=== PATIENT | female | born 1980 | race African-American/Black ===

== ENCOUNTER 2018-08-02 18:32 | Emergency (ER) | payer SELFPAY ==
[2018-08-02] MEDS ORDERED: Metoclopramide HCl 10 MG/2 ML VIAL ONE (19:52)
[2018-08-02] MEDS ORDERED: Ketorolac Tromethamine 30 MG/ML VIAL ONE (19:52)
[2018-08-02] MEDS ORDERED: Dexamethasone 4 mg/ml Vial ONE (19:52)
== END 2018-08-02 20:41 | disposition home or self-care (01) ==
LOC: ERS 18:32
DX: G43.909 Migraine, unspecified, not intractable, without status migrainosus (principal)
CPT/HCPCS: 96361; 96374; 96375; J1100; J1885; J2765

== ENCOUNTER 2018-11-12 11:01 | Emergency (ER) | payer SELFPAY ==
[2018-11-12 11:58] LABS: Bilirubin Negative (Negative); Blood, Urine Trace (Negative); Clarity CLEAR (Clear); Glucose, Urine (Dipstick) Negative (Negative); Leukocyte Negative (Negative); Nitrite Negative (Negative); Protein, Urine (Dipstick) Negative (Neg-Trace); Specific Gravity, Urine 1.022 (1.002-1.036); Urobilinogen 0.2 mg/dL (0.2-1.0); pH, Urine 5.5 (5.0-9.0)
[2018-11-12 12:00] LABS: Bacteria/HPF None Seen HPF (None Seen); Hyaline Casts/LPF 0-3 HYALINE CAST LPF (0-3 Hyaline); Pathc Cast-AUWi Flag 0.58 (0-2.49); RBC/HPF 0-3 HPF (0-3); Squamous Epithelial 0-3 HPF (0-3); WBC/HPF None Seen HPF (0-3)
[2018-11-12 12:02] LABS: Pregnancy Test - Urine (BHCG) Negative (Negative); Pregu Control Background? CLEAR/WHITE (CLR/WHITE); Pregu Control Bar Appear? YES (CONTROL BAR); Specific Gravity 1.022 (1.002-1.036)
[2018-11-12 12:11] LABS: #Basophils 0.1 thou/uL (0.0-0.2); #Eosinphils 0.1 thou/uL (0.0-0.7); #Lymphocytes 1.9 thou/uL (1.20-3.40); #Monocytes 0.5 thou/uL (0.11-0.59); #Neutrophils 3.6 thou/uL (1.40-6.50); %Eosinophils 0.9 % (0.0-10.0); %Lymphocytes 30.6 % (21.0-51.0); %Monocytes 8.6 % (0.0-10.0); %Neutrophils 58.9 % (42.0-75.0); Hemoglobin 12.5 g/dL (12.0-16.0); Mean Corpuscular HGB CONC 32.9 g/dL (32.0-36.0); Mean Corpuscular Hemoglobin 27.9 pg (27.0-31.0); Mean Corpuscular Volume 84.8 fL (78.0-98.0); Platelet Count 303 thou/uL (130-400); RBC Distribution Width 13.4 % (11.5-14.5); Red Blood Cell (RBC) Count 4.48 mill/uL (4.20-5.40); White Blood Cell (WBC) Count 6.1 thou/uL (4.8-10.8)
[2018-11-12 12:47] LABS: ALT (SGPT) 12 U/L (8-55); AST (SGOT) 18 U/L (5-34); Alkaline Phosphatase 62 U/L (40-150); Anion Gap 11 mmol/L (10-20); BUN (Urea Nitrogen) 14 mg/dL (7.0-18.7); Bilirubin, Total 0.2 mg/dL (0.2-1.2); Calc. Creatinine Clearance 0 mL/min (70-130); Calcium 8.8 mg/dL (7.8-10.44); Carbon Dioxide 21 mmol/L (22-29); Chloride 110 mmol/L (98-107); Estimated GFR-MDRD Greater than 90; Globulin 3.7 g/dL (2.4-3.5); Glucose 80 mg/dL (70-105); Lipase 26 U/L (8-78); Protein, Total 7.7 g/dL (6.0-8.3); Sodium 138 mmol/L (136-145)
== END 2018-11-12 13:38 | disposition home or self-care (01) ==
LOC: ERS 11:01
DX: R19.7 Diarrhea, unspecified (principal); G43.909 Migraine, unspecified, not intractable, without status migrainosus
CPT/HCPCS: 36415; 80053; 81003; 81015; 81025; 83690; 85025; 96372; J0500

== ENCOUNTER 2019-01-21 09:33 | Emergency (ER) | payer SELFPAY ==
[2019-01-21] MEDS ORDERED: Ibuprofen 800 MG TAB ONE (11:06)
--- NOTE | 2019-01-21 11:27 | RAD ---
RIGHT KNEE 4 VIEWS: Date: 01/21/19 HISTORY: Right knee pain. FINDINGS: There is some minimal medial compartment joint space narrowing. No spur formation or joint effusion. IMPRESSION: Minimal medial compartment joint space narrowing. POS: RUDDY
== END 2019-01-21 13:00 | disposition home or self-care (01) ==
LOC: ERS 09:33
DX: M25.561 Pain in right knee (principal); G43.909 Migraine, unspecified, not intractable, without status migrainosus; W19.XXXA Unspecified fall, initial encounter

== ENCOUNTER 2021-11-02 23:03 | Emergency (ER) | payer SELFPAY ==
[2021-11-03] MEDS ORDERED: Fluorescein Opthalmic Strip ONE (01:01)
[2021-11-03] MEDS ORDERED: Proparacaine 0.5% Opth 15 ML BOT ONE (01:02)
== END 2021-11-03 02:12 | disposition home or self-care (01) ==
LOC: ERS 23:03
DX: H57.11 Ocular pain, right eye (principal); R03.0 Elevated blood-pressure reading, without diagnosis of hypertension; H57.9 Unspecified disorder of eye and adnexa; G43.909 Migraine, unspecified, not intractable, without status migrainosus
CPT/HCPCS: 99283

== ENCOUNTER 2022-02-19 17:37 | Emergency (ER) | payer SELFPAY | END 2022-02-19 18:05 | LOC: ER/OP 17:37 → ERS 18:05 | DX: Z02.89 Encounter for other administrative examinations (principal); F16.129 Hallucinogen abuse with intoxication, unspecified | CPT/HCPCS: 93005 ==

== ENCOUNTER 2024-10-04 18:20 | Emergency (ER) | payer SELFPAY ==
[2024-10-04] MEDS ORDERED: Ketorolac Tromethamine 30 MG (1 mL) VIAL ONE (21:39)
== END 2024-10-04 21:48 | disposition home or self-care (01) ==
LOC: ERS 18:20
DX: S93.492A Sprain of other ligament of left ankle, initial encounter (principal); S93.602A Unspecified sprain of left foot, initial encounter; I10 Essential (primary) hypertension; X50.1XXA Overexertion from prolonged static or awkward postures, initial encounter
CPT/HCPCS: 96372; 99283; J1885